=== PATIENT | male | born 1980 | race Caucasian/White ===

== ENCOUNTER 2023-08-31 10:31 | Emergency (ER) | payer OTHER, SELFPAY ==
--- NOTE | ~2023-08-31 | XR_ITS ---
EXAMINATION: XR CHEST CLINICAL INFORMATION: Cough. COMPARISON: None available. TECHNIQUE: Frontal view of the chest was obtained. FINDINGS: Mild diffuse interstitial prominence with no consolidation, pleural effusion or pneumothorax. Normal appearance of the cardiomediastinal silhouette. No acute osseous findings. Visualized upper abdomen is within normal limits. XR/XR chest 1V IMPRESSION: Mild diffuse interstitial prominence which is nonspecific and could be associated with asthma, bronchitis, reactive airways disease or atypical infections.
--- NOTE | 2023-08-31 10:32 | ECG_ITS ---
Test Reason : CHEST DISCOMFORT Blood Pressure : / mmHG Vent. Rate : 070 BPM Atrial Rate : 070 BPM P-R Int : 174 ms QRS Dur : 082 ms QT Int : 362 ms P-R-T Axes : 031 058 039 degrees QTc Int : 390 ms Normal sinus rhythm Normal ECG No previous ECGs available Referred By: Generic ED Physician Electronically Signed By:Darion Gamboa
[2023-08-31 10:43] VITALS: BP 142/83; PULSE 70; RESP 16; TEMP 37.1; BMI 29.2
[2023-08-31 11:19] LABS: MANUAL DIFF FLAG NO
[2023-08-31 11:21] VITALS: BP 119/76; PULSE 67; RESP 11; TEMP 36.7; O2SAT 99
[2023-08-31 11:24] LABS: Basophils Percent Auto 0.4 % (0-2); Eosinophils Absolute Auto 0.1 X10*3/uL (0.0-0.4); Eosinophils Percent Auto 0.7 % (0-4); Hematocrit 42.4 % (42.0-52.0); Hemoglobin 15.2 g/dl (14.0-18.0); Imm Gran Abs Auto 0.02 X10*3/uL (0.00-0.03); Imm Gran Pct Auto 0.3 % (0.0-0.4); Lymphocytes Absolute Auto 1.6 X10*3/uL (1.2-4.9); Lymphocytes Percent Auto 23.3 % (20-40); Mean Corpuscular HGB Conc 35.8 g/dl (31.0-36.0); Mean Corpuscular Hemoglobin 30.5 pg (27.0-33.0); Mean Corpuscular Volume 85.1 fL (80.0-98.0); Mean Platelet Volume 9.4 fL (9.4-12.4); Monocytes Absolute Auto 0.3 X10*3/uL (0.1-1.2); Monocytes Percent Auto 4.9 % (2-11); Neutrophils Absolute Auto 4.9 x10*3/uL (2.0-8.3); Neutrophils Percent Auto 70.4 % (45-73); Platelet Count 312 X10*3/uL (160-400); Red Blood Count 4.98 X10*6/uL (4.60-5.80); Red Cell Distribution Width 11.8 % (11.0-16.0)
[2023-08-31 11:38] LABS: Anion Gap 16 (12-20); Blood Urea Nitrogen 12 mg/dL (9-16); Calcium 9.8 mg/dL (8.4-10.2); Carbon Dioxide 22 mmol/L (22-29); Chloride 104 mmol/L (96-108); Estimated Glomerular Filt Rate > 60; Glucose Random 117 mg/dL (60-115); Potassium 4.1 mmol/L (3.3-5.1); Sodium 138 mmol/L (135-145)
[2023-08-31 11:47] LABS: Troponin-I High Sensitivity < 2.7 ng/L (<3.5-35.0)
--- NOTE | 2023-08-31 12:06 | ED_ITS ---
HPI - Arrhythmia/Palpitations General Chief Complaint: Arrhythmia/Palpitations Stated Complaint: chest feels funny Time Seen by Provider: 08/31/23 10:50 Source: patient Mode of arrival: ambulatory History of Present Illness HPI narrative: 42-year-old male who presents for concerns regarding intermittent palpitations, stating his chest feels weird, this is been ongoing for several months, patient was discharged from residential program approximately 2 weeks ago and is currently taking mirtazapine and has an upcoming appointment with his psychiatrist this Saturday and states that he suffers from anxiety. Related Data Allergies Allergy/AdvReac Type Severity Reaction Status Date / Time dicloxacillin Allergy Rash Verified 08/31/23 10:43 Review of Systems 2 Review of Systems: Pertinent positives and negatives as stated in HPI PMFSH Past Medical History Source: nursing notes reviewed Social History Social History Smoked in Last 30 Days: No Use of substances other than those prescribed or required for medical reasons: Yes Substance Use Type: Marijuana Advance Directives: No Physical Exam 2 Vital Signs: Vital Signs: Last Vital Signs Temp 98.1 F 08/31/23 11:21 Pulse 67 08/31/23 11:21 Resp 11 L 08/31/23 11:21 BP 119/76 08/31/23 11:21 Pulse Ox 99 08/31/23 11:21 O2 Del Method Room Air 08/31/23 11:21 BMI result Body Mass Index 29.2 VITAL SIGNS: Reviewed. GENERAL: Well developed, well nourished, in no acute distress. HEAD: Normocephalic/atraumatic EYES: PERRLA, EOMI EARS: Ext canals without abnormality NOSE: Nares patent bilateral OROPHARYNX: no oral lesions noted, posterior pharynx clear NECK: Supple, no adenopathy LUNGS: Normal breath sounds. No adventitious sounds or accessory muscle use. SpO2<99> CARDIOVASCULAR: Regular rate and rhythm without noted murmurs ABDOMEN: Soft, non-tender, non-distended with bowel sounds. MUSCULOSKELETAL: No tenderness, deformities, or effusions noted on gross inspection. EXTREMITIES: No cyanosis, clubbing or edema. SKIN: Inspection of the skin reveals no rashes NEUROLOGIC: Alert and oriented x 4. Strength and sensation to light touch were grossly intact x 4. PSYCH: Appears anxious Medical Decision Making Medical Decision Making MDM Narrative: 42-year-old male with history and clinical presentation, DDX: Anxiety, low clinical suspicion for pneumonia/ACS but will evaluate for any underlying infection/electrolyte or arrhythmias. I reviewed all investigations and hematologic indices are negative for leukocytosis/left shift/anemia/thrombocytopenia. Chemistry indices negative for IRA/electrolyte derangements and high sensitivity troponin is undetectable. EKG has no acute findings. Chest x-ray describes some interstitial prominence that is nonspecific and otherwise no identification infiltrate or venous congestion. Will proceed with viral testing and if negative patient will be discharged. Viral testing is negative. My interpretation is that this is anxiety, however patient was offered hydroxyzine but states that this does not help him, he was encouraged to follow- up with his primary care doctor and pursue outpatient Holter monitoring. Differential Diagnosis Differential Diagnoses: The differential diagnosis associated with the presentation includes Please see the discussion above Admission/Observation Consideration of admission/observation: Escalation of care including admission/observation considered Please see the discussion above Lab Data [facility] Lab Attestation statement: I reviewed the patient's lab results. Please see the discussion above 08/31/23 11:14 08/31/23 11:14 Labs: Lab Results 08/31/23 08/31/23 Range/Units 11:14 12:55 WBC 7.0 (4.8-10.8) X10*3/uL RBC 4.98 (4.60-5.80) X10*6/uL Hgb 15.2 (14.0-18.0) g/dl Hct 42.4 (42.0-52.0) % MCV 85.1 (80.0-98.0) fL MCH 30.5 (27.0-33.0) pg MCHC 35.8 (31.0-36.0) g/dl RDW 11.8 (11.0-16.0) % Plt Count 312 (160-400) X10*3/uL MPV 9.4 (9.4-12.4) fL Immature Gran % (Auto) 0.3 (0.0-0.4) % Neut % (Auto) 70.4 (45-73) % Lymph % (Auto) 23.3 (20-40) % [place] % (Auto) 4.9 (2-11) % Eos % (Auto) 0.7 (0-4) % Baso % (Auto) 0.4 (0-2) % Lymph # (Auto) 1.6 (1.2-4.9) X10*3/uL [place] # (Auto) 0.3 (0.1-1.2) X10*3/uL Eos # (Auto) 0.1 (0.0-0.4) X10*3/uL Baso # (Auto) 0.0 (0.0-0.2) X10*3/uL Abs Immat Gran (auto) 0.02 (0.00-0.03) X10*3/uL Absolute Neuts (auto) 4.9 (2.0-8.3) x10*3/uL Absolute Nucleated RBC 0.000 (0.0-0.012) X10*3/uL Nucleated RBC % (auto) 0.0 (0.0-0.2) /100WBC Sodium 138 (135-145) mmol/L Potassium 4.1 (3.3-5.1) mmol/L Chloride 104 (96-108) mmol/L Carbon Dioxide 22 (22-29) mmol/L Anion Gap 16 (12-20) BUN 12 (9-16) mg/dL Creatinine 0.71 (0.5-1.4) mg/dL Estim Creat Clear Calc 117.0 Estimated GFR > 60 Random Glucose 117 H (60-115) mg/dL Calcium 9.8 (8.4-10.2) mg/dL Troponin I High Sens < 2.7 (<3.5-35.0) ng/L COVID-19 (FABIOLA) Negative (Negative) COVID-19 Clin Com See Note Influenza Type A (RADHA) Negative (Negative) Influenza Type B (RADHA) Negative (Negative) Influenza A & B Note See Note Independent Interpretation I performed an independent interpretation of an: EKG Interpretation: Normal sinus rhythm, HR-70, no STEMI, GA/QRS/QTC is within normal limits. Radiology Impression Discussion of test interpretation with radiology: I have reviewed the radiologist's reading. Radiologist Impression: Please see the discussion above Chronic Conditions Depression, anxiety Discharge Plan Discharge Clinical Impression: Anxiety, Palpitations Patient Disposition: Home, Self-Care Instructions: Anxiety (ED), Heart Palpitations (ED) Additional Instructions: Please follow-up with your primary care doctor by calling the office on Saturday to set up an appointment. Please discuss possibility of an outpatient Holter monitor. Please keep your scheduled appointment this coming Saturday. Return to the emergency room with any significantly worsening symptoms. Referrals: Amaya Tracey NP [Primary Care Provider] - Print Language: [place]
[2023-08-31 13:15] LABS: COVID-19 Test Negative (Negative); IDNOW Serial# 08D9AD1C; IDNOW Serial# 152EDE1D; Influenza A Negative (Negative); Influenza B2 Negative (Negative)
[2023-08-31 14:00] VITALS: BP 114/81; PULSE 67; RESP 12; TEMP 36.9; O2SAT 99
== END 2023-08-31 14:01 | disposition home or self-care (01) ==
PROVIDERS: Emergency Provider Student in an Organized Health Care Education/Training Program; PCP Nurse Practitioner
DX: R00.2 Palpitations (principal); F41.9 Anxiety disorder, unspecified
CPT/HCPCS: 36415; 71045; 80048; 84484; 85025; 87502; 87635; 93005; 99283; 99285

== ENCOUNTER → 2023-08-31 10:32 | Outpatient (BNV) | payer OTHER, SELFPAY | PROVIDERS: Emergency Provider Student in an Organized Health Care Education/Training Program; PCP Nurse Practitioner; Visit Provider Internal Medicine Cardiovascular Disease | DX: R07.9 Chest pain, unspecified (principal) | CPT/HCPCS: 93010 ==